=== PATIENT | male | born 1995 | race Caucasian/White ===

== ENCOUNTER → 2020-06-07 09:32 | Outpatient (BNVA) | payer MEDICAID, SELFPAY | PROVIDERS: PCP Internal Medicine; Visit Provider Anesthesiology | DX: M54.81 Occipital neuralgia (principal); M47.812 Spondylosis without myelopathy or radiculopathy, cervical region; Z79.891 Long term (current) use of opiate analgesic | CPT/HCPCS: 99204 ==

== ENCOUNTER 2020-06-15 14:40 | Emergency (ER) | payer MEDICAID, SELFPAY ==
[2020-06-15 14:46] VITALS: BP 154/109; PULSE 108; RESP 16; TEMP 37.2; O2SAT 98; BMI 33.6
--- NOTE | 2020-06-15 14:52 | ED.NECK ---
HPI - Neck Pain/Injury General Chief Complaint: Neck Pain/Injury Stated Complaint: NECK PAIN Time Seen by Provider: 06/15/20 14:49 Source: patient Mode of arrival: ambulatory Limitations: no limitations History of Present Illness HPI Narrative: 25 y/o male with history of chronic neck pain x 1 year (Occipital neuralgia, Spondylosis of cervical spine without myelopathy) presenting with continued neck pain. He was seen by Lebron Chung MD on 06/07 for chronic pain management and started on a pain management program with Tramadol 100 mg 4x per day. He was offered C2-C3 C4 diagnostic medial branch block to alleviate occipital headache, he also was offered C4-C5 C6 diagnostic medial branch block to alleviate his neck stiffness and pain. He is considering neurosurgical intervention @ [facility]. He presents now wanting something stronger for his pain. MD complaint: neck pain Onset (ago): year(s) (1) Related Data Previous Rx's Medication Instructions Recorded cyclobenzaprine 10 mg PO TID PRN #30 tab 06/15/20 ketorolac 10 mg PO Q8H PRN #30 tab 06/15/20 lidocaine [Lidoderm] 1 patch TOPICAL DAILY #15 ea 06/15/20 Allergies Allergy/AdvReac Type Severity Reaction Status Date / Time No Known Allergies Allergy Unverified 04/29/20 19:52 [No Known Allergies*] Review of Systems Review of Systems: Constitutional: No Fever, No Chills ENT/Mouth: No sore throat, No Rhinorrhea, No Swallowing Difficulty Neck: +pain, +limited ROM Eyes: No Eye Pain, No Swelling, No Redness Cardiovascular: No Chest Pain, No SOB, No Orthopnea, No Edema Respiratory: No Cough, No Sputum, No Wheezing, No dyspnea Gastrointestinal: No Nausea, No Vomiting, No Diarrhea, No abdominal Pain Musculoskeletal: + joint pain, No Myalgias Skin: No Skin Lesions, No rash Neuro: No Weakness, No Numbness, No Dizziness, + Headache Psych: No Anxiety/Panic, + Depression Heme/Lymph: No Bruising, No Lymphadenopathy PMFSH Past Medical History Attestation statement: The following information was validated with the patient. Medical History Occipital neuralgia Spondylosis of cervical spine without myelopathy Social History Social History Smoked in Last 30 Days: No Use of substances other than those prescribed or required for medical reasons: No Advance Directives: No Advance Directives Information Provided: Yes Physical Exam Vital Signs: Vital Signs: Vital Signs Temp Pulse Resp BP Pulse Ox 06/15/20 14:46 98.9 F 108 H 16 154/109 H 98 Body Mass Index 33.6 Appearance: Alert. Oriented X3. No acute distress. Neck: limited ROM - patient unable to flex neck backwards, able to tilt side to side and flex neck. axial compression worsens pain. no skin changes. Respiratory: No respiratory distress. Skin: Skin warm and dry. Normal skin color. Normal skin turgor. No rashes. Extremities: no edema, rull ROM with normal sterength. Neuro: Oriented X 3. No motor deficit. No sensory deficit. Course Course Course Narrative: 25 y/o here with chronic neck pain. Recently seen by Chronic Pain Management doctor and is currently on 100 mg Tramadol 4x per day. He states this regimen worked well when it was initiated now it only improves his pain to a 6/10. He wakes up each morning with pain 9.5/10. He is unable to work and has difficulty sleeping. He denies recent or new injury. He is currently reaching out to [facility] for possible surgical intervention. He called his Pain management doctor while he was in the ER to see if he could be seen earlier. Unfortunately given his opiate contract with Dr. Chung we are unable to provide additional opioid analgesics. We discussed alternative treatments and patient agrees to trial of NSAID and muscle relaxer until he can be re-evaluated by Dr. Chung. Given Toradol IM here with some improvement. Stable for d/c. Critical Care Time Critical Care Time Critical Care Time: No Discharge Plan Discharge Clinical Impression: Spondylosis of cervical spine without myelopathy Occipital neuralgia Qualifiers: Laterality: unspecified laterality Qualified Code(s): M54.81 - Occipital neuralgia Patient Disposition: Home, Self-Care Instructions: Chronic Neck Pain (DC) Additional Instructions: Increase use of your soft neck brace. Use ice and/or heat to the area several times per day. Follow up with Dr. Juliet MORALES. Follow up with the Neurosurgeons at [facility]. Continue taking your Tramadol as prescribed. Prescriptions: New cyclobenzaprine 10 mg tablet 10 mg PO TID PRN (Reason: muscle spasm) Qty: 30 RF: 0 ketorolac 10 mg tablet 10 mg PO Q8H PRN (Reason: pain) Qty: 30 RF: 0 lidocaine [Lidoderm] 5 % adhesive patch,medicated 1 patch topical DAILY Qty: 15 RF: 0
[2020-06-15] MEDS: Ketorolac Tromethamine 60 MG/2 ML VIAL IM (15:45)
== END 2020-06-15 15:56 | disposition home or self-care (01) ==
PROVIDERS: Emergency Provider Emergency Medicine; PCP Internal Medicine
DX: M54.2 Cervicalgia (principal); M54.81 Occipital neuralgia; M47.892 Other spondylosis, cervical region; Z79.899 Other long term (current) drug therapy
CPT/HCPCS: 96372; 99284; J1885

== ENCOUNTER → 2020-07-07 13:02 | Outpatient (BNVA) | payer MEDICAID, SELFPAY | PROVIDERS: PCP Internal Medicine; Referring Provider Internal Medicine; Visit Provider Anesthesiology | DX: M54.81 Occipital neuralgia (principal); M47.812 Spondylosis without myelopathy or radiculopathy, cervical region; Z79.899 Other long term (current) drug therapy | CPT/HCPCS: 99212 ==

== ENCOUNTER → 2020-08-02 09:01 | Outpatient (BNVA) | payer MEDICAID, SELFPAY | PROVIDERS: PCP Internal Medicine; Referring Provider Internal Medicine; Visit Provider Nurse Practitioner Family | DX: M47.812 Spondylosis without myelopathy or radiculopathy, cervical region (principal); M54.81 Occipital neuralgia | CPT/HCPCS: 99212 ==

== ENCOUNTER 2020-08-20 07:56 | Outpatient (RCR) | payer MEDICAID, SELFPAY ==
--- NOTE | 2020-08-20 10:43 | MHC.PT.EP ---
[facility] [place] Office [place] Office [place] Office [address] [facility] [address] Mary Menjivar [address] [phone] F: [phone] F: [phone] F: [phone] F: [phone] Physical Therapy Plan of Care Date of Evaluation: 08/20/20 Date of Surgery: NA Diagnosis: CERVICAL SPONDYLOSIS W/O MYELOPATHY OR RADICULOPATHY Assessment: Pt IS 25 YO M REFERRED TO PT FROM PAIN MANAGEMENT WITH CERVICAL SPONDYLOSIS. Pt REPORTS VARIOUS INJURIES TO HIS NECK OVER THE YEARS (FOOTBALL, LIFTING). PRESENTS TO PT WITH SIGNIFICANTLY LIMITED CERV EXTENSION. Pt UNABLE TO HOLD NECK IN NEUTRAL (5 DEGREES OF NECK FLEXION NOTED AT REST). PRESENTS WITH SHOULDER ROM WFLS AND SOME DECREASE IN UPPER BODY STRENGTH. Pt HAS HAD FACET INJECTIONS WITHOUT RELIEF, PT WITHOUT RELIEF. HAS SEEN A NEUROSURGEON AND SURGERY (FUSION) NOT AN OPTION AT THIS TIME. Pt HAS BEEN ON TRAMADOL X 1 YR AND REPORTS RELIEF BUT FEELS HE IS GROWING A TOLERANCE TO IT (IS FOLLOWED BY MD FOR OPIOID/MED COUNTS). Pt IS NOT WORKING AT THIS TIME, REPORTS DOESNT REALLY HAVE A SOCIAL LIFE. SHOULD BENEFIT FROM PT TO ADDRESS NECK PAIN, LIMITED CERV POSTURE AND MOBILITY AND DECREASED UPPER BODY STRENGTH AND HELP INCREASE FUNCTIONAL MOBILITY WITH A GOAL OF RETURN TO WORK AND SOCIAL ACTIVITIES. OF NOTE, AFTER EVAL THIS PT REQUESTED AND RECEIVED FAX FROM [facility] WITH MRI REPORT WHICH SHOWS OVERALL MILD DEGENERATIVE CHANGES WITHOUT SIGNIFICANT CANAL STENOSIS..SXS MAY HAVE BECOME PSYCHOSOMATIC IN NATURE WITH ST TIGHTNESS IN RESPONSE TO CONTINUED POOR POSTURE AND LIMITED MOVEMENT AND OVERALL ACTIVITY. THIS MAY MAKE PROGRESS IN PT MORE DIFFICULT. Pt HOWEVER, IS YOUNG AND IF PT RX CAN BE COMBINED WITH ED RE RE-ENTERING THE WORK FORCE/SOCIAL ACTIVITIS, Pt MAY SHOW IMPROVEMENT. Frequency and Duration: The patient will be seen 2X/WK X 6 WKS Short Term Goals: 1. INCREASED POSTURE AWARENESS AND AWARENESS OF NECK CARE 2. 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 I HEP WITH DC EX PLAN 2. RTW/SOCIAL ACTIVITIES 3. DECREASED NECK PAIN AT LEAST 50% WITH ADLS 4. Pt ABLE TO EXTEND NECK 5-10 DEGREES Treatment Plan: Modalities to reduce pain, spasms and effusion. Manual therapy to restore motion and function. Therapeutic exercise to improve strength and flexibility. Neuromuscular re-education for posture and balance. Therapeutic activities to return to functional activities of daily living. Electronically signed by: LIANA SYED PT Please sign and return to therapist. Thank you for your referral.
--- NOTE | 2020-09-01 15:30 | MHC.PT.DC ---
[facility] [place] Office [place] Office [place] Office [address] [place] [address] [address] Irene Menjivar [address] [phone] F: [phone] F: [phone] F: [phone] F: [phone] Physical Therapy Discharge Report Diagnosis: CERVICAL SPONDYLOSIS W/O MYELOPATHY OR RADICULOPATHY Date of Surgery: NA Date of Evaluation: 08/20/20 Date of Discharge: 09/01/20 Treatments to Date: 1 Cancellations to Date: 0 No Shows to Date: 0 Discharge Status: Patient Elected to Stop Discharge Summary: Pt SEEN FOR INIT EVAL ONLY AND THEN CALLED TO CX FURTHER APPTS (?MOVING TO [facility]). PER INIT EVAL ASSESSMENT:FINDINGS: Pt IS 25 YO M REFERRED TO PT FROM PAIN MANAGEMENT WITH CERVICAL SPONDYLOSIS. Pt REPORTS VARIOUS INJURIES TO HIS NECK OVER THE YEARS (FOOTBALL, LIFTING). PRESENTS TO PT WITH SIGNIFICANTLY LIMITED CERV EXTENSION. Pt UNABLE TO HOLD NECK IN NEUTRAL (5 DEGREES OF NECK FLEXION NOTED AT REST). PRESENTS WITH SHOULDER ROM WFLS AND SOME DECREASE IN UPPER BODY STRENGTH. Pt HAS HAD FACET INJECTIONS WITHOUT RELIEF, PT WITHOUT RELIEF. HAS SEEN A NEUROSURGEON AND SURGERY (FUSION) NOT AN OPTION AT THIS TIME. Pt HAS BEEN ON TRAMADOL X 1 YR AND REPORTS RELIEF BUT FEELS HE IS GROWING A TOLERANCE TO IT (IS FOLLOWED BY MD FOR OPIOID/MED COUNTS). Pt IS NOT WORKING AT THIS TIME, REPORTS DOESNT REALLY HAVE A SOCIAL LIFE. SHOULD BENEFIT FROM PT TO ADDRESS NECK PAIN, LIMITED CERV POSTURE AND MOBILITY AND DECREASED UPPER BODY STRENGTH AND HELP INCREASE FUNCTIONAL MOBILITY WITH A GOAL OF RETURN TO WORK AND SOCIAL ACTIVITIES. OF NOTE, AFTER EVAL THIS PT REQUESTED AND RECEIVED FAX FROM [facility] WITH MRI REPORT WHICH SHOWS OVERALL MILD DEGENERATIVE CHANGES WITHOUT SIGNIFICANT CANAL STENOSIS..SXS MAY HAVE BECOME PSYCHOSOMATIC IN NATURE WITH ST TIGHTNESS IN RESPONSE TO CONTINUED POOR POSTURE AND LIMITED MOVEMENT AND OVERALL ACTIVITY. THIS MAY MAKE PROGRESS IN PT MORE DIFFICULT. Pt HOWEVER, IS YOUNG AND IF PT RX CAN BE COMBINED WITH ED RE RE-ENTERING THE WORK FORCE/SOCIAL ACTIVITIS, Pt MAY SHOW IMPROVEMENT. [ End ] Electronically signed by: LIANA SYED PT Please sign and return to therapist. Thank you for your referral.
== END 2020-09-08 09:26 | disposition other institution (70) ==
LOC: HO.PTWFD 07:56
PROVIDERS: PCP Internal Medicine; Visit Provider Anesthesiology
DX: M47.812 Spondylosis without myelopathy or radiculopathy, cervical region (principal)
CPT/HCPCS: 97110; 97140; 97162; 97535

== ENCOUNTER → 2020-09-24 14:20 | Outpatient (BNVA) | payer MEDICAID, SELFPAY | PROVIDERS: PCP Internal Medicine; Visit Provider Nurse Practitioner Family | DX: M47.812 Spondylosis without myelopathy or radiculopathy, cervical region (principal); M54.81 Occipital neuralgia | CPT/HCPCS: 99212 ==

== ENCOUNTER → 2020-10-22 14:55 | Outpatient (BNVA) | payer MEDICAID, SELFPAY | PROVIDERS: PCP Internal Medicine; Visit Provider Nurse Practitioner Family | DX: M47.812 Spondylosis without myelopathy or radiculopathy, cervical region (principal); M54.81 Occipital neuralgia | CPT/HCPCS: 99212 ==

== ENCOUNTER → 2020-11-22 16:27 | Outpatient (BNVA) | payer MEDICAID, SELFPAY | PROVIDERS: PCP Internal Medicine; Visit Provider Anesthesiology | DX: M47.812 Spondylosis without myelopathy or radiculopathy, cervical region (principal); M54.81 Occipital neuralgia; Z79.899 Other long term (current) drug therapy | CPT/HCPCS: 99212 ==

== ENCOUNTER → 2020-12-20 13:57 | Outpatient (BNVA) | payer MEDICAID, SELFPAY | PROVIDERS: PCP Internal Medicine; Visit Provider Anesthesiology | DX: M47.812 Spondylosis without myelopathy or radiculopathy, cervical region (principal); M54.81 Occipital neuralgia; Z79.899 Other long term (current) drug therapy | CPT/HCPCS: 99212 ==